=== PATIENT | male | born 1980 | race African-American/Black ===

== ENCOUNTER 2020-05-04 11:09 | Emergency (ER) | payer BC, OTHER ==
[~2020-05-04] VITALS: Ht 167.6 cm; Wt 70.3 kg
[2020-05-04] MEDS ORDERED: KETOROLAC TROMETH 60MG/2ML VIAL IM ONE (12:00)
[2020-05-04 12:18] VITALS: BP 121/77
== END 2020-05-04 12:24 | disposition home or self-care (01) ==
LOC: ER 11:09
DX: S39.012A Strain of muscle, fascia and tendon of lower back, initial encounter (principal); F17.210 Nicotine dependence, cigarettes, uncomplicated; X50.9XXA Other and unspecified overexertion or strenuous movements or postures, initial encounter; Y93.89 Activity, other specified; Y92.89 Other specified places as the place of occurrence of the external cause; Y99.8 Other external cause status
CPT/HCPCS: 96372; 99283; J1885

== ENCOUNTER 2020-06-22 07:45 | Emergency (ER) | payer SELFPAY ==
[~2020-06-22] VITALS: Ht 167.6 cm; Wt 72.6 kg
[2020-06-22 07:49] VITALS: BP 119/85
[2020-06-22] MEDS ORDERED: IPRATROPIUM BROM 0.5 MG/2.5ML INH SOL NEB ONE (08:30)
[2020-06-22] MEDS ORDERED: methylPREDNISolone SOD SUCC 125 MG/2 ML VL IM ONE (08:30)
[2020-06-22] MEDS ORDERED: ALBUTEROL SULF 2.5 MG/0.5ML(0.5%) NEB SOLN NEB ONE (08:30)
== END 2020-06-22 09:10 | disposition home or self-care (01) ==
LOC: ER 07:45
DX: J45.901 Unspecified asthma with (acute) exacerbation (principal); F17.210 Nicotine dependence, cigarettes, uncomplicated
CPT/HCPCS: 94640; 96372; 99283; J2930; J7644